=== PATIENT | male | born 1995 | race Caucasian/White ===

== ENCOUNTER 2018-07-01 19:47 | Emergency (ER) | payer BC ==
[2018-07-01 20:24] VITALS: BP 115/63
--- NOTE | 2018-07-01 20:36 | UC ---
Lower Extremity/Ankle HPI - HPI Summary HPI Summary: Patient was playing basketball this evening when he rolled his left ankle complaining of pain and swelling to the lateral aspect. - History of Current Complaint Chief Complaint: UCLowerExtremity Stated Complaint: LEFT ANKLE INJURY Time Seen by Provider: 07/01/18 20:22 Hx Obtained From: Patient Onset/Duration: Sudden Onset Severity Initially: Mild Severity Currently: Mild Pain Intensity: 6 Aggravating Factor(s): Ambulation Alleviating Factor(s): Elevation, Ice Able to Bear Weight: Yes - Risk Factors Gout Risk Factors: Negative DVT Risk Factors: Negative Septic Arthritis Risk Factor: Negative - Allergies/Home Medications Allergies/Adverse Reactions: Allergies Allergy/AdvReac Type Severity Reaction Status Date / Time amoxicillin Allergy Anaphylatic Verified 07/01/18 20:18 Shock Home Medications: Home Medications NK [No Home Medications Reported] 07/01/18 [History Confirmed 07/01/18] PMH/Surg Hx/FS Hx/Imm Hx Previously Healthy: Yes - no chronic medical problems - Surgical History Surgical History: Yes Surgery Procedure, Year, and Place: adenoidectomy. ear tubes - Social History Occupation: Employed Full-time Lives: With Family Alcohol Use: Weekly Substance Use Type: None Smoking Status (MU): Never Smoked Tobacco Review of Systems All Other Systems Reviewed And Are Negative: Yes Motor: Positive: Negative - Swelling to the lateral ankle with mild tenderness with flexion and extension. Neurovascular: Positive: Negative Musculoskeletal: Positive: Negative Neurological: Positive: Negative - Denies any numbness or tingling Psychological: Positive: Negative Is Patient Immunocompromised?: No Physical Exam Triage Information Reviewed: Yes Appearance: Well-Appearing, No Pain Distress, Well-Nourished Vital Signs: Initial Vital Signs Temp 97.9 F 07/01/18 20:19 Pulse 72 07/01/18 20:19 Resp 16 07/01/18 20:19 BP 115/63 07/01/18 20:19 Pulse Ox 100 07/01/18 20:19 Vital Signs Reviewed: Yes Musculoskeletal Exam: Normal - Good peripheral pulses neuro sensation and capillary refill. Swelling and tenderness on palpation to the lateral left ankle. No deformity is noted of the swelling. Minimal tenderness on palpation to the medial ankle. Foot is nontender. Achilles is intact Neurological Exam: Normal Neurological: Positive: Alert, Muscle Tone Normal Psychological Exam: Normal Skin Exam: Normal Skin: Positive: Other - See notes above under musculoskeletal Lower Extremity Course/Dx - Course Course Of Treatment: Patient has been comfortable here. He was given an Valentino wrap. He is to elevate and ice as much as possible. He is to limit ambulation. - Differential Dx/Diagnosis Differential Diagnosis/HQI/PQRI: Sprain Provider Diagnosis: Ankle sprain - Physician Notifications Discussed Patient Care With: Yarely Moreland Time Discussed With Above Provider: 21:00 Discharge - Sign-Out/Discharge Documenting (check all that apply): Patient Departure All imaging exams completed and their final reports reviewed: No - Discharge Plan Condition: Good Disposition: HOME Patient Education Materials: Ankle Sprain (DC) Referrals: Denver Diamond MD [Medical Doctor] - No Primary Care Phys,NOPCP [Primary Care Provider] - Additional Instructions: Continue to ice and elevate intermittently. Limit ambulation. Definite follow up with sports medicine or local orthopedist if you have continued pain and swelling over the next week. - Billing Disposition and Condition Condition: GOOD Disposition: Home - Attestation Statements Provider Attestation: I was available for consult. This patient was seen by the MIKAELA. The patient was discussed but not evaluated by me. I am in agreement with plan of care -Magaly
--- NOTE | 2018-07-03 07:56 | UC ---
- Progress Note Progress Note: Patient Name: JUWAN ANDREA Medical Record#: [id number] Ordering Physician: Yarely Moreland MD Acct.#: [id number] : 1995 Age: 22 Sex: M Location: [facility] Exam Date: 07/01/182003 ADM Status: DEP ER Order Information: ANKLE LEFT 3+VWS Accession Number: [id number] CPT: 21099 HISTORY: injury . Left foot inversion injury, left ankle pain and swelling COMPARISONS: None VIEWS: 4, Frontal, lateral, and oblique views of the left ankle FINDINGS: BONE DENSITY: Normal. BONES: There is no displaced fracture. JOINTS: There is no arthropathy. ALIGNMENT: There is no dislocation. SOFT TISSUES: There is soft tissue swelling most pronounced along the lateral malleolus. OTHER FINDINGS: None. IMPRESSION: SOFT TISSUE SWELLING. NO ACUTE OSSEOUS INJURY. IF SYMPTOMS PERSIST, RECOMMEND REPEAT IMAGING. R0 Preliminary Imaging Read R0 <Electronically signed by Sergio Spain MD in OV> 07/02/18755 Dictated By: Sergio Spain MD Dictated Date/Time: 07/02/18755 Transcribed Date/Time: 07/02/18754 Copy to: CC:Yarely Moreland MD; No Primary Care Phys,NOPCP Imaging - [facility] [address] [address] This report is only to be considered final once signed by the Provider(s) as displayed in the "<Electronically Signed by >" field (s). Absence of a signature indicates the report is in a draft status and still needs to be finalized. In the event this document was created by someone other than the signing Provider, the individual initiating the document will be listed in the "Entered by:" or "Dictated by:" patino. 1 of 2 Course/Dx - Diagnoses Provider Diagnoses: Ankle sprain - Provider Notifications Time Discussed With Above Provider: 21:00 Discharge - Sign-Out/Discharge Documenting (check all that apply): Post-Discharge Follow Up All imaging exams completed and their final reports reviewed: Yes - Discharge Plan Condition: Good Disposition: HOME Patient Education Materials: Ankle Sprain (DC) Referrals: Denver Diamond MD [Medical Doctor] - No Primary Care Phys,NOPCP [Primary Care Provider] - Additional Instructions: Continue to ice and elevate intermittently. Limit ambulation. Definite follow up with sports medicine or local orthopedist if you have continued pain and swelling over the next week. - Billing Disposition and Condition Condition: GOOD Disposition: Home
== END 2018-07-01 21:25 | disposition home or self-care (01) ==
LOC: UCCORT 19:47
DX: S93.402A Sprain of unspecified ligament of left ankle, initial encounter (principal); Z88.0 Allergy status to penicillin; X50.0XXA Overexertion from strenuous movement or load, initial encounter; Y93.67 Activity, basketball; Y92.9 Unspecified place or not applicable
CPT/HCPCS: 99202; G0463